=== PATIENT | male | born 1990 | race Two or more races ===

== ENCOUNTER 2020-07-13 08:22 | Emergency (ER) | payer OTHER | END 2020-07-13 09:22 | disposition home or self-care (01) | LOC: FER 08:22 | DX: H61.22 Impacted cerumen, left ear (principal); S00.412A Abrasion of left ear, initial encounter; F17.200 Nicotine dependence, unspecified, uncomplicated; Z88.0 Allergy status to penicillin; X58.XXXA Exposure to other specified factors, initial encounter | CPT/HCPCS: 32555; 99283 ==

== ENCOUNTER 2021-06-08 19:31 | Emergency (ER) | payer OTHER ==
[2021-06-08 20:18] LABS: BASOPHIL 0.6 % (0-2); EOSINOPHIL 0.9 % (0-5); HCT 43.9 % (42.0-52.0); HGB 15.2 g/dl (13.2-18.0); LYMPHOCYTE 25.3 % (15-48); MCH 32.6 pg (25.0-31.0); MCHC 34.6 g/dL (32.0-36.0); MCV 94.2 fL (78.0-100.0); MONOCYTE 6.2 % (0-12); MPV 9.6 fL (6.0-9.5); NEUTROPHIL 66.8 % (41-80); NRBC 0; PLT 193 K/uL (150-400); RBC 4.66 M/uL (4.70-6.00); RDW 12.8 % (11.5-14.0); WBC 8.2 K/uL (4.0-10.5)
[2021-06-08 20:39] LABS: BUN/CREAT RATIO (CALC) 10.5 RATIO; CREATININE 0.95 mg/dL (0.67-1.17); POTASSIUM 3.7 mmol/L (3.5-5.1)
[2021-06-08 20:54] LABS: CORONAVIRUS 2019 SARS-COV-2 NEGATIVE (NEGATIVE); INFLUENZA A NAA NEGATIVE (NEGATIVE)
[2021-06-08] MEDS ORDERED: METRONIDAZOLE500 MG PO (22:03)
[2021-06-08] MEDS ORDERED: CIPRO500 MG PO (22:03)
== END 2021-06-08 22:20 | disposition home or self-care (01) ==
LOC: FER 19:31
PROVIDERS: Nurse Practitioner Family
DX: R19.7 Diarrhea, unspecified (principal); R11.0 Nausea; Z20.822 Contact with and (suspected) exposure to COVID-19; Z88.0 Allergy status to penicillin
CPT/HCPCS: 36415; 80048; 84484; 85025; U0002